=== PATIENT | female | born 1965 | race Caucasian/White ===

== ENCOUNTER 2025-03-15 10:53 | Emergency (ER) | payer SELFPAY ==
[2025-03-15] MEDS ORDERED: IBUPROFEN 200 MG TAB PO ONE (11:03)
--- NOTE | 2025-03-15 11:58 | RAD REPORT ---
EXAMINATION: Head C Spine Mpr Wo Con CLINICAL INDICATION: Female, 59 years old. PAIN TECHNIQUE: Axial CT images from the skull base to the vertex without intravenous contrast. Axial CT i mages through the cervical spine were obtained without intravenous contrast. Sagittal and coronal reformatted images were created from the data set. Coronal and sagittal reformatted images were creat ed from the data set. One or more of the following dose reduction techniques were used: Automated exposure control, adjustment of the mA and/or kV according to patient size, and/or iterative reconstr uction. Unless otherwise specified, incidental findings do not require dedicated imaging follow-up. [id number]. COMPARISON: No prior exams FINDINGS: Head: INTRACRANIAL: No acute intracranial hemorrhage. No acute large vascular territory infarct. No hydroce phalus. No mass effect or midline shift. No significant white matter disease. VASCULATURE: No visualized abnormalities in the arteries or dural venous sinuses. SCALP/SKULL: No calvarial fracture identified. Small left frontal forehead hematoma. SINUSES: The visualized paranasal sinuses are mostly clear. No significant mastoid fluid. Cervical spine: ALIGNMENT: The cervical spine has normal alignment without scoliosis or spondylolisthesis. BONE: Vertebral body heights are maintained. No aggressive osseous lesions. DEGENERATIVE: No significant focal degenerative changes. SOFT TISSUE: No significant abnormalities in the soft tissue of the neck. The visualized lung apices are clear. IMPRESSION: No acute intracranial abnormality. No acute fracture or traumatic malalignment of the cervical spine.
--- NOTE | 2025-03-15 12:00 | RAD REPORT ---
EXAMINATION: Facial Bones W/ Mpr CLINICAL INDICATION: Female, 59 years old. FRACTURE TECHNIQUE: Axial images were obtained through the facial bones and orbits without intravenous contras t. Sagittal and coronal reconstructions were created from the data. One or more of the following dose reduction techniques were used: Automated exposure control, adjustment of the mA and/or kV accor ding to patient size, and/or iterative reconstruction. Unless otherwise specified, incidental findings do not require dedicated imaging follow-up. [id number]. COMPARISON: No prior exams FINDINGS: SOFT TISSUE: Small left forehead hematoma. BONES: Age-indeterminate nondisplaced bilateral nasal bone fractures. ORBITS: The globes are intact. No intraorbital hemorrhage or mass. SINUSES: The paranasal sinuses and tympanomastoid cavities are predominantly clear. BRAIN: No acute abnormalities in the visualized intracranial structures. IMPRESSION: Age-indeterminate nondisplaced nasal bone fractures.
--- NOTE | 2025-03-15 12:15 | ER ---
Nurse's Notes [facility] Name: Melody Lino Age: 59 yrs Sex: Female : 1965 Arrival Date: 03/15/2025 Time: 10:53 Bed 19 Private MD: Diagnosis: Fall on same level, unspecified;Fracture of nasal bones;Unspecified injury of head, initial encounter-hematoma Presentation: 03/15 10:55 Chief complaint: EMS states: toned out to [facility] center for slip and fall in some water. me1 Hematoma to forehead, No LOC, No thinners. pain level 3/10. Coronavirus screen: Vaccine status: Patient reports being unvaccinated. Ebola Screen: No symptoms or risks identified at this time. Initial Sepsis Screen: Does the patient meet any 2 criteria? No. Patient's initial sepsis screen is negative. Does the patient have a suspected source of infection? No. Patient's initial sepsis screen is negative. Risk Assessment: Do you want to hurt yourself or someone else? Patient reports no desire to harm self or others. Onset of symptoms was March 15, 2025 at 10:00. 10:55 Method Of Arrival: EMS: [facility] me1 10:55 Acuity: BENNIE 4 me1 Triage Assessment: 10:57 General: Appears in no apparent distress. well groomed, well developed, well nourished, me1 Behavior is calm, cooperative, appropriate for age. Pain: Complains of pain in head. EENT: No deficits noted. Neuro: Level of Consciousness is awake, alert, obeys commands, Oriented to person, place, time, situation, Appropriate for age Reports headache frontal area. Cardiovascular: Patient's skin is warm and dry. Respiratory: Airway is patent Respiratory effort is even, unlabored, Respiratory pattern is regular, symmetrical. GI: No signs and/or symptoms were reported involving the gastrointestinal system. : No signs and/or symptoms were reported regarding the genitourinary system. Derm: Skin is intact, is healthy with good turgor, Skin is normal, Bruising that is dark purple, on forehead. Musculoskeletal: Circulation, motion, and sensation intact. Range of motion:. Injury Description: slip and fall in some water. Hit head, NO LOC, No thinners. Historical: - Allergies: 10:57 No Known Allergies; me1 - PMHx: 10:57 Diabetes mellitus; Osteoarthritis; meniscus tear bilateral knees; me1 - PSHx: 10:57 section; Cholecystectomy; carpal tunnel; me1 - Immunization history:: Adult Immunizations up to date. - Infectious Disease History:: Denies. - Social history:: Smoking status: Patient denies any tobacco usage or history of. Screenin:59 [facility] ED Fall Risk Assessment (Adult) History of falling in the last 3 months, me1 including since admission Yes- single mechanical fall (1 pt) Confusion or Disorientation No (0 pts) Intoxicated or Sedated No (0 pts) Impaired Gait No (0 pts) Mobility Assist Device Used No (0 pt) Altered Elimination No (0 pt) Score/Fall Risk Level 0 - 2 = Low Risk Maintained a safe environment, Provided non-skid footwear, Hourly rounding (assess needs \T\ fall precautionary measures) done. Abuse screen: Denies threats or abuse. Nutritional screening: No deficits noted. Tuberculosis screening: No symptoms or risk factors identified. Assessment: 10:59 General: See triage assessment. me1 Vital Signs: 10:55 BP 127 / 64; Pulse 88; Resp 17; Temp 97.9; Pulse Ox 100% ; Weight 91.63 kg; Height 5 me1 ft. 0 in. ; Pain 3/10; 11:00 BP 135 / 64; Pulse 88; Resp 17; Pulse Ox 95% ; me1 12:00 BP 146 / 74; Pulse 88; Resp 16; Temp 98.2; Pulse Ox 99% ; me1 10:55 Body Mass Index 39.45 (91.63 kg, 152.4 cm) me1 10:55 Pain Scale: Adult me1 [place] Coma Score: 11:37 Eye Response: spontaneous(4). Motor Response: obeys commands(6). Verbal Response: gerard oriented(5). Total: 15. ED Course: 10:55 Patient arrived in ED. me1 10:57 Triage completed. me1 10:57 Arm band placed on Patient placed in an exam room. me1 10:58 Lj Frank MD is Attending Physician. [facility] 10:59 Patient has correct armband on for positive identification. Bed in low position. Call nm1 light in reach. Side rails up X2. Provided Education on: POC. Verbalized understanding.. Client placed on continuous cardiac and pulse oximetry monitoring. NIBP monitoring applied. Pulse ox on. NIBP on. 10:59 No provider procedures requiring assistance completed. me1 11:22 Lily Killian, RN is Primary Nurse. me1 11:28 CT Head C Spine In Process Unspecified. EDMS 11:28 CT Facial Bones W/O Con In Process Unspecified. EDMS 12:15 Barbara Riley MD is Referral Physician. [facility] 12:46 Patient did not have IV access during this emergency room visit. me1 Administered Medications: 11:05 Drug: Ibuprofen PO 600 mg PO once Route: PO; me1 12:35 Follow up: Response: No adverse reaction; Pain is decreased me1 Medication: 10:59 VIS not applicable for this client. me1 Outcome: 12:15 Discharge ordered by . [facility] 12:46 Discharged to home ambulatory, me1 12:46 Condition: stable 12:46 Discharge instructions given to patient, Instructed on discharge instructions, follow up and referral plans. medication usage, Demonstrated understanding of instructions, follow-up care, medications, Prescriptions given X 1, 13:07 Patient left the ED. me1 Signatures: Dispatcher [employer] Lj Dumont MD MD cha Eddleman, Michelle, RN RN me1
--- NOTE | 2025-03-15 12:15 | EDPHYS ---
Physician Documentation [facility] Name: Melody Lino Age: 59 yrs Sex: Female : 1965 Arrival Date: 03/15/2025 Time: 10:53 Bed 19 Private MD: ED Physician Lj Frank HPI: 03/15 11:35 This 59 yrs old Female presents to ER via EMS with complaints of Fall Injury. gerard 11:35 Details of fall: The patient fell from an upright position, while walking. Onset: The gerard symptoms/episode began/occurred just prior to arrival. Associated injuries: The patient sustained injury to the head, contusion, hematoma, pain. Severity of symptoms: At their worst the symptoms were mild, in the emergency department the symptoms are unchanged. The patient has not experienced similar symptoms in the past. Historical: - Allergies: 10:57 No Known Allergies; me1 - PMHx: 10:57 Diabetes mellitus; Osteoarthritis; meniscus tear bilateral knees; me1 - PSHx: 10:57 section; Cholecystectomy; carpal tunnel; me1 - Immunization history:: Adult Immunizations up to date. - Infectious Disease History:: Denies. - Social history:: Smoking status: Patient denies any tobacco usage or history of. ROS: 11:36 Constitutional: Negative for fever, chills, and weight loss, Eyes: Negative for injury, gerard pain, redness, and discharge, Neck: Negative for injury, pain, and swelling, Cardiovascular: Negative for chest pain, palpitations, and edema, Respiratory: Negative for shortness of breath, cough, wheezing, and pleuritic chest pain, Abdomen/GI: Negative for abdominal pain, nausea, vomiting, diarrhea, and constipation, Back: Negative for injury and pain, : Negative for injury, bleeding, discharge, and swelling, MS/Extremity: Negative for injury and deformity, Skin: Negative for injury, rash, and discoloration, Neuro: Negative for headache, weakness, numbness, tingling, and seizure, Psych: Negative for depression, anxiety, suicide ideation, homicidal ideation, and hallucinations, Allergy/Immunology: Negative for hives, rash, and allergies, Endocrine: Negative for neck swelling, polydipsia, polyuria, polyphagia, and marked weight changes, Hematologic/Lymphatic: Negative for swollen nodes, abnormal bleeding, and unusual bruising, 11:36 ENT: Positive for nose swelling, forehead swelling, Exam: 11:38 Constitutional: This is a well developed, well nourished patient who is awake, alert, gerard and in no acute distress. Eyes: Pupils equal round and reactive to light, extra-ocular motions intact. Lids and lashes normal. Conjunctiva and sclera are non-icteric and not injected. Cornea within normal limits. Periorbital areas with no swelling, redness, or edema. ENT: Nares patent. No nasal discharge, no septal abnormalities noted. Tympanic membranes are normal and external auditory canals are clear. Oropharynx with no redness, swelling, or masses, exudates, or evidence of obstruction, uvula midline. Mucous membranes moist. Neck: Trachea midline, no thyromegaly or masses palpated, and no cervical lymphadenopathy. Supple, full range of motion without nuchal rigidity, or vertebral point tenderness. No Meningismus. Chest/axilla: Normal chest wall appearance and motion. Nontender with no deformity. No lesions are appreciated. Cardiovascular: Regular rate and rhythm with a normal S1 and S2. No gallops, murmurs, or rubs. Normal PMI, no JVD. No pulse deficits. Respiratory: Lungs have equal breath sounds bilaterally, clear to auscultation and percussion. No rales, rhonchi or wheezes noted. No increased work of breathing, no retractions or nasal flaring. Abdomen/GI: Soft, non-tender, with normal bowel sounds. No distension or tympany. No guarding or rebound. No evidence of tenderness throughout. Back: No spinal tenderness. No costovertebral tenderness. Full range of motion. Skin: Warm, dry with normal turgor. Normal color with no rashes, no lesions, and no evidence of cellulitis. MS/ Extremity: Pulses equal, no cyanosis. Neurovascular intact. Full, normal range of motion., bilateral aka Neuro: Awake and alert, GCS 15, oriented to person, place, time, and situation. Cranial nerves II-XII grossly intact. Motor strength 5/5 in all extremities. Sensory grossly intact. Cerebellar exam normal. Normal gait. Psych: Awake, alert, with orientation to person, place and time. Behavior, mood, and affect are within normal limits. 11:38 Head/face: Noted is hematoma, swelling, that is mild, of the forehead, right eye and left eye, Vital Signs: 10:55 BP 127 / 64; Pulse 88; Resp 17; Temp 97.9; Pulse Ox 100% ; Weight 91.63 kg; Height 5 me1 ft. 0 in. ; Pain 3/10; 11:00 BP 135 / 64; Pulse 88; Resp 17; Pulse Ox 95% ; me1 12:00 BP 146 / 74; Pulse 88; Resp 16; Temp 98.2; Pulse Ox 99% ; me1 10:55 Body Mass Index 39.45 (91.63 kg, 152.4 cm) me1 10:55 Pain Scale: Adult me1 [place] Coma Score: 11:37 Eye Response: spontaneous(4). Motor Response: obeys commands(6). Verbal Response: gerard oriented(5). Total: 15. MDM: 10:58 Medical Screening Exam initiated gerard 11:37 Differential diagnosis: Contusion of Hematoma on head, face, nose, Intracranial bleed- gerard Concussion without LOC. cerebral contusion. Differential diagnosis: abrasion, closed head injury, contusion, fracture, laceration, multiple trauma, sprain, strain. Data reviewed: vital signs, nurses notes, lab test result(s), EKG, radiologic studies. Consideration of Admission/Observation Escalation of care including admission/observation considered. I considered the following discharge prescriptions or medication management in the emergency department Medications were administered in the Emergency Department. See MAR. Independent interpretation of the following test(s) in the Emergency Department CT Scan: My interpretation is ct head , face , c spine. 03/15 11:00 Order name: CT Head C Spine; Complete Time: 12:14 [facility] 03/15 11:00 Order name: CT Facial Bones W/O Con; Complete Time: 12:14 gerard 03/15 11:00 Order name: Ice pack; Complete Time: 11:00 gerard Administered Medications: 11:05 Drug: Ibuprofen PO 600 mg PO once Route: PO; me1 12:35 Follow up: Response: No adverse reaction; Pain is decreased me1 Disposition Summary: 03/15/25 12:15 Discharge Ordered Notes: Location: Home gerard Problem: new gerard Symptoms: have improved gerard Condition: Stable gerard Diagnosis - Fall on same level, unspecified gerard - Fracture of nasal bones gerard - Unspecified injury of head, initial encounter - hematoma gerard Followup: gerard - With: Private Physician - When: 2 - 3 days - Reason: Recheck today's complaints, Continuance of care, Re-evaluation by your physician Followup: gerard - With: Barbara Riley MD - When: 2 - 3 days - Reason: Recheck today's complaints, Re-evaluation by your physician Discharge Instructions: - Discharge Summary Sheet gerard - Head Injury, Adult gerard - Fall Prevention in the Home, Adult gerard - Fall Prevention in the Home, Adult, [id number] gerard - Nasal Fracture, [id number] gerard - Head Injury, Adult, [id number] [facility] Forms: - Medication Reconciliation Form [facility] - Antibiotic Education [facility] - Prescription Opioid Use gerard - Patient Portal Instructions [facility] - Leadership Thank You Letter [facility] Prescriptions: - Ibuprofen 600 mg Oral Tablet - take 1 tablet ORAL route every 6 hours As needed take with food; 30 tablet; [facility] Refills: 0, Product Selection Permitted Signatures: Dispatcher [employer] Lj Dumont MD MD cha Eddleman, Michelle, RN RN me1 Corrections: (The following items were deleted from the chart) 11:00 11:00 Facial Bones W/ [id number] ordered. EDMD EDMS
[2025-03-15 14:32] VITALS: BP 146/74; TEMP 98.2; O2SAT 99
== END 2025-03-15 13:07 | disposition home or self-care (01) ==
LOC: ER 10:53
DX: S02.2XXA Fracture of nasal bones, initial encounter for closed fracture (principal); W18.30XA Fall on same level, unspecified, initial encounter
CPT/HCPCS: 70450; 70486; 72125; 76377; 99284